=== PATIENT | male | born 1970 | race Two or more races ===

== ENCOUNTER 2018-10-26 00:46 | Emergency (ER) | payer OTHER ==
[~2018-10-26] VITALS: Ht 185.4 cm; Wt 103.9 kg
[2018-10-26] MEDS ORDERED: LORAZEPAM 1 MG TABLET PO ONE (02:00)
[2018-10-26] MEDS ORDERED: LORAZEPAM 1 MG TABLET ONE (02:01)
[2018-10-26] MEDS ORDERED: NIFEdipine XL (30MG) 30 MG TAB PO ONE (02:08)
[2018-10-26] MEDS: NIFEdipine XL (30MG) 30 MG TAB PO SCH ×2 (02:12→02:42)
--- NOTE | 2018-10-26 03:53 | NUR ---
Patient discharged to home in stable condition. Written and verbal after care instructions given. Patient verbalizes understanding of instruction. Patient given written and verbal discharge instructions. Patient verbalizes understanding of instructions. Patient is ambulatory with steady gait. Refuses offer of jail placement. Patient given list of available shelters in surrounding area. PT PROVIDED FOOD AND OFFERED TRANSPORTATION AND CLOTHES.
[2018-10-26 03:57] VITALS: BP 156/90
== END 2018-10-26 03:58 | disposition home or self-care (01) ==
LOC: ER 00:48
DX: I10 Essential (primary) hypertension (principal); F15.10 Other stimulant abuse, uncomplicated; F32.9 Major depressive disorder, single episode, unspecified; F41.9 Anxiety disorder, unspecified